=== PATIENT | male | born 1995 ===

== ENCOUNTER 2020-03-11 19:54 | Emergency (ER) | payer BC, OTHER ==
[2020-03-11 20:07] VITALS: BP 132/80; PULSE 77; RESP 18; TEMP 98
[2020-03-11 20:33] LABS: Amorphous Sediment,Urine Rare /hpf; Appearance,Urine Cloudy (Clear); Bacteria,Urine Occasional /hpf; Bilirubin,Urine Negative (Negative); Blood,Urine Trace (Negative); Calcium Oxalate Crystals,Urine Few /hpf; Color,Urine Yellow; Glucose,Urine (UA) Negative (Negative); Ketones,Urine Negative (Negative); Leukocyte Esterase,Urine Negative (Negative); Mucus,Urine Moderate /hpf; Nitrite,Urine Negative (Negative); PH, Urine 6.5 (5.0-8.0); Protein,Urine 1+ (Negative); RBC,Urine 10 /hpf (0-5); Specific Gravity,Urine 1.029 (1.001-1.035); Squamous Epithelial Cell,Urine <1 /hpf (0-4); WBC,Urine 3 /hpf (0-5)
[2020-03-11] MEDS ORDERED: ONDANSETRON 4 MG/2 ML VIAL IVP STA (20:34)
[2020-03-11] MEDS ORDERED: SODIUM CHLORIDE 0.9% 1,000 ML IV STA (20:34)
[2020-03-11] MEDS ORDERED: MORPHINE SULFATE 4 MG/ML SYRINGE IV STA (20:34)
--- NOTE | 2020-03-11 20:37 | ED ---
General Adult HPI - General Chief complaint: Abdominal Pain Stated complaint: Abdominal Pain Time Seen by Provider: 03/11/20 20:15 Source: patient, family, RN notes reviewed Mode of arrival: wheelchair Limitations: no limitations - History of Present Illness Initial comments: Patient is a pleasant 25-year-old male presenting to the emergency Department with abdominal discomfort. Onset of symptoms was just a couple of hours ago. As comfort was fairly sudden onset and feels like cramping of the lower abdomen. Patient has nausea and vomited once, almost twice. No constipation or diarrhea. No dysuria or hematuria. No history of similar symptoms previously. - Related Data Previous Rx's Medication Instructions Recorded Cephalexin [Keflex] 500 mg PO Q6HR #40 cap 12/09/15 Allergies Allergy/AdvReac Type Severity Reaction Status Date / Time No Known Allergies Allergy Verified 12/09/15 13:35 Review of Systems ROS Statement: Those systems with pertinent positive or pertinent negative responses have been documented in the HPI. ROS Other: All systems not noted in ROS Statement are negative. Constitutional: Denies: fever Eyes: Denies: eye pain ENT: Denies: ear pain Respiratory: Denies: cough Cardiovascular: Denies: chest pain Endocrine: Denies: fatigue Gastrointestinal: Reports: abdominal pain, nausea, vomiting Genitourinary: Denies: urgency, dysuria, hematuria Musculoskeletal: Denies: back pain Skin: Denies: rash Neurological: Denies: headache Past Medical History Past Medical History: No Reported History History of Any Multi-Drug Resistant Organisms: None Reported Past Surgical History: No Surgical Hx Reported Past Psychological History: No Psychological Hx Reported Smoking Status: Never smoker Past Alcohol Use History: None Reported General Exam Limitations: no limitations General appearance: alert Head exam: Present: normocephalic Eye exam: Present: normal appearance Neck exam: Present: normal inspection Respiratory exam: Present: normal lung sounds bilaterally Cardiovascular Exam: Present: regular rate, normal rhythm GI/Abdominal exam: Present: soft, tenderness (Mild to moderate lower abdominal tenderness), normal bowel sounds. Absent: distended, guarding, rebound, rigid, pulsatile mass Extremities exam: Present: normal inspection Neurological exam: Present: alert Psychiatric exam: Present: normal affect, normal mood Skin exam: Present: normal color Course Vital Signs 03/11/20 20:05 Temperature 98.0 F Pulse Rate 77 Respiratory 18 Rate Blood Pressure 132/80 O2 Sat by Pulse 100 Oximetry Medical Decision Making - Medical Decision Making Patient reevaluated and improved. Abdomen soft and nontender. Patient and mother updated on results. Mother states she had similar symptoms previously with her kidney stones. - Lab Data Result diagrams: 03/11/20 20:43 03/11/20 20:43 Lab Results 03/11/20 03/11/20 03/11/20 Range/Units 20:11 20:43 20:43 WBC 10.5 (3.8-10.6) k/uL RBC 5.07 (4.30-5.90) m/uL Hgb 15.8 (13.0-17.5) gm/dL Hct 46.6 (39.0-53.0) % MCV 92.0 (80.0-100.0) fL MCH 31.1 (25.0-35.0) pg MCHC 33.8 (31.0-37.0) g/dL RDW 12.1 (11.5-15.5) % Plt Count 256 (150-450) k/uL Neutrophils % 82 % Lymphocytes % 13 % Monocytes % 4 % Eosinophils % 1 % Basophils % 0 % Neutrophils # 8.6 H (1.3-7.7) k/uL Lymphocytes # 1.3 (1.0-4.8) k/uL Monocytes # 0.4 (0-1.0) k/uL Eosinophils # 0.1 (0-0.7) k/uL Basophils # 0.0 (0-0.2) k/uL PT 11.1 (9.0-12.0) sec INR 1.1 (<1.2) APTT 24.2 (22.0-30.0) sec Sodium (137-145) mmol/L Potassium (3.5-5.1) mmol/L Chloride (98-107) mmol/L Carbon Dioxide (22-30) mmol/L Anion Gap mmol/L BUN (9-20) mg/dL Creatinine (0.66-1.25) mg/dL Est GFR (CKD-EPI)AfAm (>60 ml/min/1.73 sqM) Est GFR (CKD-EPI)NonAf (>60 ml/min/1.73 sqM) Glucose (74-99) mg/dL Calcium (8.4-10.2) mg/dL Total Bilirubin (0.2-1.3) mg/dL AST (17-59) U/L ALT (4-49) U/L Alkaline Phosphatase (38-126) U/L Total Protein (6.3-8.2) g/dL Albumin (3.5-5.0) g/dL Amylase (30-110) U/L Lipase (23-300) U/L Urine Color Yellow Urine Appearance Cloudy (Clear) Urine pH 6.5 (5.0-8.0) Ur Specific [place] 1.029 (1.001-1.035) Urine Protein 1+ H (Negative) Urine Glucose (UA) Negative (Negative) Urine Ketones Negative (Negative) Urine Blood Trace H (Negative) Urine Nitrite Negative (Negative) Urine Bilirubin Negative (Negative) Urine Urobilinogen 2.0 (<2.0) mg/dL Ur Leukocyte Esterase Negative (Negative) Urine RBC 10 H (0-5) /hpf Urine WBC 3 (0-5) /hpf Ur Squamous Epith Cells <1 (0-4) /hpf Calcium Oxalate Crystal Few H (None) /hpf Amorphous Sediment Rare H (None) /hpf Urine Bacteria Occasional H (None) /hpf Urine Mucus Moderate H (None) /hpf 03/11/20 Range/Units 20:43 WBC (3.8-10.6) k/uL RBC (4.30-5.90) m/uL Hgb (13.0-17.5) gm/dL Hct (39.0-53.0) % MCV (80.0-100.0) fL MCH (25.0-35.0) pg MCHC (31.0-37.0) g/dL RDW (11.5-15.5) % Plt Count (150-450) k/uL Neutrophils % % Lymphocytes % % Monocytes % % Eosinophils % % Basophils % % Neutrophils # (1.3-7.7) k/uL Lymphocytes # (1.0-4.8) k/uL Monocytes # (0-1.0) k/uL Eosinophils # (0-0.7) k/uL Basophils # (0-0.2) k/uL PT (9.0-12.0) sec INR (<1.2) APTT (22.0-30.0) sec Sodium 140 (137-145) mmol/L Potassium 4.2 (3.5-5.1) mmol/L Chloride 105 (98-107) mmol/L Carbon Dioxide 25 (22-30) mmol/L Anion Gap 10 mmol/L BUN 13 (9-20) mg/dL Creatinine 1.09 (0.66-1.25) mg/dL Est GFR (CKD-EPI)AfAm >90 (>60 ml/min/1.73 sqM) Est GFR (CKD-EPI)NonAf >90 (>60 ml/min/1.73 sqM) Glucose 121 H (74-99) mg/dL Calcium 9.6 (8.4-10.2) mg/dL Total Bilirubin 0.3 (0.2-1.3) mg/dL AST 35 (17-59) U/L ALT 63 H (4-49) U/L Alkaline Phosphatase 99 (38-126) U/L Total Protein 8.0 (6.3-8.2) g/dL Albumin 5.0 (3.5-5.0) g/dL Amylase 75 (30-110) U/L Lipase 112 (23-300) U/L Urine Color Urine Appearance (Clear) Urine pH (5.0-8.0) Ur Specific [place] (1.001-1.035) Urine Protein (Negative) Urine Glucose (UA) (Negative) Urine Ketones (Negative) Urine Blood (Negative) Urine Nitrite (Negative) Urine Bilirubin (Negative) Urine Urobilinogen (<2.0) mg/dL Ur Leukocyte Esterase (Negative) Urine RBC (0-5) /hpf Urine WBC (0-5) /hpf Ur Squamous Epith Cells (0-4) /hpf Calcium Oxalate Crystal (None) /hpf Amorphous Sediment (None) /hpf Urine Bacteria (None) /hpf Urine Mucus (None) /hpf - Radiology Data Radiology results: image reviewed (Computed tomography scan of the abdomen pelvis shows left-sided hydronephrosis with punctate calcification in the bladder, suspicious for recently passed stone) Disposition Clinical Impression: Ureterolithiasis Disposition: HOME SELF-CARE Condition: Stable Instructions (If sedation given, give patient instructions): Kidney Stones (ED) Additional Instructions: Please follow-up with primary care physician in the next couple days for recheck. Return for fevers, increased pain or vomiting, worsening or change in symptoms or other concerns. Avoid pop and Coke. Is patient prescribed a controlled substance at d/c from ED?: No Referrals: Raleigh Reeves MD [STAFF PHYSICIAN] - 1-2 days Time of Disposition: 21:35
[2020-03-11 20:56] LABS: Basophils % (A) 0 %; Eosinophils # (A) 0.1 k/uL (0-0.7); Eosinophils % (A) 1 %; HCT 46.6 % (39.0-53.0); HGB 15.8 gm/dL (13.0-17.5); Lymphocytes # (A) 1.3 k/uL (1.0-4.8); Lymphocytes % (A) 13 %; MCH 31.1 pg (25.0-35.0); MCHC 33.8 g/dL (31.0-37.0); Mean Platelet Volume 9.3; Monocytes # (A) 0.4 k/uL (0-1.0); Monocytes % (A) 4 %; Neutrophils # (A) 8.6 k/uL (1.3-7.7); Neutrophils % (A) 82 %; Platelet Count 256 k/uL (150-450); RBC 5.07 m/uL (4.30-5.90); RDW 12.1 % (11.5-15.5); WBC 10.5 k/uL (3.8-10.6)
[2020-03-11 21:01] LABS: INR 1.1 (<1.2); Partial Thromboplastin Time 24.2 sec (22.0-30.0); Prothrombin Time 11.1 sec (9.0-12.0)
[2020-03-11 21:03] LABS: ALT 63 U/L (4-49); AST 35 U/L (17-59); African American GFR (CKD) >90 (>60 ml/min/1.73 sqM); Alkaline Phosphatase 99 U/L (38-126); Amylase 75 U/L (30-110); Anion Gap 10 mmol/L; Blood Urea Nitrogen 13 mg/dL (9-20); Calcium 9.6 mg/dL (8.4-10.2); Carbon Dioxide 25 mmol/L (22-30); Chloride 105 mmol/L (98-107); Glucose 121 mg/dL (74-99); Non-African American GFR(CKD) >90 (>60 ml/min/1.73 sqM); Potassium 4.2 mmol/L (3.5-5.1); Sodium 140 mmol/L (137-145); Total Bilirubin 0.3 mg/dL (0.2-1.3)
--- NOTE | 2020-03-11 21:22 | CT ---
EXAMINATION TYPE: CT abdomen pelvis wo con DATE OF EXAM: 03/11/2020 COMPARISON: None HISTORY: ABDOMINAL PAIN CT DLP: 579.2 mGycm Automated exposure control for dose reduction was used. TECHNIQUE: Helical acquisition of images from the lung bases through the pelvis. FINDINGS: Lack of intravenous contrast could compromise sensitivity of the exam. LUNG BASES: No significant abnormality is appreciated. AORTA: No significant abnormality is appreciated. LIVER/GB: No significant abnormality is appreciated. PANCREAS: No significant abnormality is seen. SPLEEN: No significant abnormality is seen. ADRENALS: No significant abnormality is seen. KIDNEYS: Mild left-sided hydronephrosis present. Punctate nonobstructive calcification is present wit hin the right kidney lower pole. REPRODUCTIVE ORGANS: No significant abnormality is seen. URINARY BLADDER: Punctate calcific densities present within the urinary bladder to the left of midli ne. BOWEL: No significant abnormality is seen. The appendix is normal. FREE AIR: No Free Air is visible. ASCITES: None visible. PELVIC ADENOPATHY: None visualized. RETROPERITONEAL ADENOPATHY: No Retroperitoneal Adenopathy visible. OSSEOUS STRUCTURES: There is a spinal curvature present.. IMPRESSION: FINDINGS LIKELY REPRESENT DISTAL LEFT URETERAL CALCULUS OR RECENTLY PASSED STONE INTO THE URINARY LAURA DDER
== END 2020-03-11 21:45 | disposition home or self-care (01) ==
LOC: EC 19:54
DX: N20.1 Calculus of ureter (principal); Z87.442 Personal history of urinary calculi
CPT/HCPCS: 36415; 80053; 82150; 83690; 85025; 85610; 85730; 81001; 87086; 74176; 99284; 96374; 96375; 96361; J2270; J2405

== ENCOUNTER 2025-02-17 12:45 | Emergency (ER) | payer BC, OTHER ==
[2025-02-17 12:51] VITALS: RESP 20
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
[2025-02-17] MEDS: DIPH,PERTUS(ACELL)TETVAC-LF 0.5 ML VIAL IM ONE (14:23)
[2025-02-17] MEDS: BACITRACIN OINT 1 EACH PACKET TOPICAL ONE (14:23)
[2025-02-17 14:32] VITALS: BP 110/76; PULSE 80; TEMP 97.9
== END 2025-02-17 14:32 | disposition home or self-care (01) ==
LOC: EC 12:45
DX: T23.211A Burn of second degree of right thumb (nail), initial encounter (principal); T31.0 Burns involving less than 10% of body surface; Z23 Encounter for immunization; F17.290 Nicotine dependence, other tobacco product, uncomplicated; X19.XXXA Contact with other heat and hot substances, initial encounter; Y99.0 Civilian activity done for income or pay
CPT/HCPCS: 16020; 90471; 90715; 99283